=== PATIENT | male | born 1975 | race African-American/Black ===

== ENCOUNTER 2017-09-03 11:36 | Emergency (ER) | payer SELFPAY ==
[2017-09-03] MEDS ORDERED: Lidocaine 1% PF 5 ML VIAL ONE (12:17)
[2017-09-03] MEDS ORDERED: Azithromycin 250 MG TAB ONE (12:17)
[2017-09-03] MEDS ORDERED: cefTRIAXone\\ROCEPHIN 250 MG VIAL ONE (12:17)
[2017-09-03 12:48] LABS: Bilirubin Small (Negative); Blood, Urine Negative (Negative); Clarity CLOUDY (Clear); Glucose, Urine (Dipstick) Negative (Negative); Leukocyte Moderate (Negative); Nitrite Negative (Negative); Protein, Urine (Dipstick) 30 mg/dL (Neg-Trace); Specific Gravity, Urine 1.031 (1.002-1.036); pH, Urine 5.5 (5.0-9.0)
[2017-09-03 12:51] LABS: Bacteria/HPF None Seen HPF (None Seen); Hyaline Casts/LPF 0-3 HYALINE CAST LPF (0-3 Hyaline); Squamous Epithelial None Seen HPF (0-3)
[2017-09-03 13:12] LABS: RBC/HPF None Seen HPF (0-3)
[2017-09-06 02:05] LABS: Chlamydia by PCR Not Detected (NotDetected); GC by PCR DETECTED (NotDetected)
== END 2017-09-03 12:58 | disposition home or self-care (01) ==
LOC: ERS 11:36
DX: Z20.2 Contact with and (suspected) exposure to infections with a predominantly sexual mode of transmission (principal); F17.210 Nicotine dependence, cigarettes, uncomplicated
CPT/HCPCS: 81003; 81015; 87491; 87591; 96372; J0696; J2001

== ENCOUNTER 2018-07-18 21:03 | Inpatient (IN) | payer SELFPAY ==
[~2018-07-18 21:03] MED LIST: ISOVUE-370 76%-LOCM 1 ML ONE
[2018-07-18 23:34] LABS: #Basophils 0.1 thou/uL (0.0-0.2); #Eosinphils 0.2 thou/uL (0.0-0.7); #Lymphocytes 1.5 thou/uL (1.20-3.40); #Monocytes 0.8 thou/uL (0.11-0.59); #Neutrophils 5.6 thou/uL (1.40-6.50); %Basophils 0.7 % (0.0-1.0); %Eosinophils 2.3 % (0.0-10.0); %Lymphocytes 18.5 % (21.0-51.0); %Monocytes 9.5 % (0.0-10.0); Hemoglobin 14.7 g/dL (14.0-18.0); Mean Corpuscular HGB CONC 30.9 g/dL (32.0-36.0); Mean Corpuscular Hemoglobin 24.1 pg (27.0-31.0); Mean Corpuscular Volume 77.9 fL (78.0-98.0); Mean Platelet Volume 9.2 fL (7.4-10.4); Platelet Count 301 thou/uL (130-400); RBC Distribution Width 13.8 % (11.5-14.5); Red Blood Cell (RBC) Count 6.12 mill/uL (4.70-6.10); White Blood Cell (WBC) Count 8.1 thou/uL (4.8-10.8)
[2018-07-18] MEDS ORDERED: Ampicillin/Sulbactam 3 GM in Sodium Chloride 0.9% 100 ML IVPB SCH (23:45)
--- NOTE | 2018-07-18 23:51 | CT ---
CT of the neck with contrast: 07/18/2018 COMPARISON: None HISTORY: Mouth infection, evaluate for abscess TECHNIQUE: Axial CT imaging at 2.5 mm intervals from the skull base through the lung apices with IV c ontrast. Coronal and sagittal reformatted imaging obtained. FINDINGS: The imaged paranasal sinuses and mastoid air cells are grossly unremarkable. The imaged lung apices are unremarkable. The retroantral fat and the parapharyngeal fat appears clear bilaterally. The parotid glands and subm andibular glands are unremarkable. The tonsillar pillars, epiglottis and preepiglottic fat, hyoid bone, thyroid cartilage, cricoid cartilage, thyroid gland, and level of the glottis appear unremarkab le. There is an expansile lytic lesion associated with the left maxilla at the level of the second premol ar with cortical disruption both medially and laterally. This lesion measures 2.4 cm in greatest dimension and likely represents a large periapical abscess involving multiple teeth. There are vera us dental caries and missing teeth bilaterally. In addition, there is an expansile hypodense lesion associated with the mandible on the right measuring at least 2.4 cm, associated with the first and se cond premolars. This also likely represents a prominent periapical abscess. Direct visualization is advised. Neoplastic lesions cannot be fully excluded in the proper clinical scenario. There are enlar ged level 1 lymph nodes bilaterally. Mildly enlarged bilateral level 2A and level 2B lymph nodes are noted, likely reactive in nature. There is soft tissues swelling and inflammatory fat stranding involving the gingival surface of the o uter table of the mandible on the right in the outer table of the maxilla on the left. IMPRESSION: Expansile lytic lesions associated with the left maxilla and the right mandible with maycol cent fat stranding suggesting prominent periapical abscesses. Associated lymph node enlargement is likely reactive in nature. In the proper clinical setting, malignancy cannot be excluded but is felt much less likely. Dental consultation is advised.
[2018-07-18 23:55] LABS: ALT (SGPT) 14 U/L (8-55); AST (SGOT) 15 U/L (5-34); Albumin 4.3 g/dL (3.5-5.0); Alkaline Phosphatase 107 U/L (40-150); Anion Gap 16 mmol/L (10-20); BUN (Urea Nitrogen) 6 mg/dL (8.9-20.6); Calc. Creatinine Clearance 0 mL/min (70-130); Calcium 9.2 mg/dL (7.8-10.44); Carbon Dioxide 23 mmol/L (22-29); Chloride 100 mmol/L (98-107); Estimated GFR-MDRD Greater than 90; Globulin 3.9 g/dL (2.4-3.5); Glucose 82 mg/dL (70-105); Potassium 3.8 mmol/L (3.5-5.1); Protein, Total 8.2 g/dL (6.0-8.3); Sodium 135 mmol/L (136-145)
[2018-07-19] MEDS ORDERED: Adacel (T-DAP) 0.5 ML SYRINGE ONE (00:03)
[2018-07-19] MEDS ORDERED: Ketorolac Tromethamine 30 MG/ML VIAL ONE (00:03)
[2018-07-19 00:14] LABS: HIV (1/2) Antibody/Antigen Non-Reactive (NonReactive); HIV 1/2 INDEX 0.14 S/CO (<1.00)
[2018-07-19] MEDS: Sodium Chloride 0.9% 1,000 ML IV SCH ×5 (02:07→22:22)
[2018-07-19 02:24] VITALS: BMI 25.9
[2018-07-19] MEDS ORDERED: Morphine 2 MG/ML SYRINGE SLOW IVP PRN (02:29)
[2018-07-19] MEDS ORDERED: Ondansetron PF 4 MG/2 ML Vial IVP PRN (02:30)
[2018-07-19] MEDS ORDERED: Ondansetron ODT 4 MG TAB SL PRN (02:30)
[2018-07-19] MEDS: Ampicillin/Sulbactam 3 GM in Sodium Chloride 0.9% 100 ML IVPB SCH ×4 (09:05→20:18)
[2018-07-19] MEDS ORDERED: Acetaminophen 325 MG TAB PO PRN (13:15)
--- NOTE | 2018-07-19 18:50 | CON ---
DATE OF CONSULTATION: 07/19/2018 HISTORY OF PRESENT ILLNESS: This is a 42-year-old male, who reports mouth and throat pain beginning on with worsening symptoms over the weekend, ultimately leading to swelling of the lips and significant pain with difficulty opening the mouth and difficulty with p.o. intake resulting in the patient's report to the emergency room. CT of the neck was taken with concern for dental abscess , for which Oral Surgery was consulted. PAST MEDICAL HISTORY: None. MEDICATIONS: None. ALLERGIES: NKDA. SOCIAL HISTORY: Denies alcohol or recreational drug use. One pack per day smoking history. PHYSICAL EXAMINATION: VITAL SIGNS: Blood pressure 143/76, pulse 110, temperature 99.2, and oxygen saturation 99% on room air at the time of initial evaluation. GENERAL: The patient is lying in bed, watching TV, in no acute distress. Awake , alert, and oriented. HEENT: Pupils are equally round and reactive to light. Extraocular movements intact. Nose within normal limits. Ears within normal limits. There is edema of the upper and lower lips with crusting along the vermilion border. Ulcerations and vesicles present on the mucosal surface of the lower lip extending into vestibule. There was difficulty obtaining a detailed intraoral exam due to the patient's discomfort and inability to open the mouth wide due to pain, but poor overall oral hygiene is present. There is no purulence appreciated. There is also no intraoral edema outside of the lips. No tooth pain on palpation or evidence of acute odontogenic abscess associated with the maxillary and mandibular findings on the CT scan. Tongue is full range of motion. No lesions are present on the dorsal aspect. The floor of the mouth and ventral surface of the tongue could not be directly visualized, but the patient reports that he feels that there is ulcerations in this area. REVIEW OF SYMPTOMS: The patient reports significant lip and mucosal pain intraorally, throat discomfort, difficulty swallowing due to pain, otherwise review of symptoms within normal limits. LABORATORY DATA: White blood cell count 8.1, hemoglobin 14.7, hematocrit 47.7, and platelets 301. Chemistry; sodium 135, potassium 3.8, chloride 100, carbon dioxide 23, BUN 6, creatinine 1, and glucose 82. C-reactive protein 6.5. CT of the neck reveals a 2.5 x 2 cm radiolucent lesion at the apex of teeth #12 through #14. It is a well circumscribed lesion with associated bony expansion. The maxillary sinus is clear superior to this area. There is a dental decay and periodontal disease present throughout the dentition. There is also a 2.5 x 1.5 cm radiolucent well circumscribed lesion also with bony expansion at the apex of teeth #28, #29, and #30. ASSESSMENT AND PLAN: This is a 42-year-old male with what appears to be an acute viral infection. There is no clinical signs that are consistent with an acute bacterial odontogenic infection. The lesions that are present on the CT scan associated with the teeth appear more like benign pathology than acute abscess. Clinically at this time the CT findings appear to just be an incidental finding unrelated to the patient's chief complaint of lip pain, swelling and ulcerations. Recommend supportive therapy for apparent viral infection. The patient is currently having difficulty with p.o. intake, so IV fluids are recommended until sufficiently able to stay hydrated on his own. Viscous lidocaine can be used as needed for relief of intraoral pain associated with ulcerations, anti-inflammatories for pain managements as well. No indications for surgical intervention at this time. Will reassess tomorrow. Job ID: [id number] [facility]
[2018-07-20] MEDS ORDERED: diphenhydrAMINE 25 MG CAP PO PRN
[2018-07-20] MEDS ORDERED: Ibuprofen 100 MG/5 ML UDCUP PO SCH (00:15)
[2018-07-20] MEDS: Aluminum & Magnesium Hydroxide 60 ML, Lidocaine 2% Viscous Solution 30 ML, diphenhydrAM... SSW PRN ×3 (01:14→17:14)
[2018-07-20] MEDS: Ampicillin/Sulbactam 3 GM in Sodium Chloride 0.9% 100 ML IVPB SCH ×4 (03:11→20:28)
[2018-07-20 06:31] LABS: #Basophils 0.1 thou/uL (0.0-0.2); #Eosinphils 0.2 thou/uL (0.0-0.7); #Lymphocytes 2.7 thou/uL (1.20-3.40); #Monocytes 0.8 thou/uL (0.11-0.59); #Neutrophils 4.6 thou/uL (1.40-6.50); %Basophils 0.8 % (0.0-1.0); %Eosinophils 2.1 % (0.0-10.0); %Lymphocytes 32.4 % (21.0-51.0); %Monocytes 9.4 % (0.0-10.0); %Neutrophils 55.3 % (42.0-75.0); Hemoglobin 11.3 g/dL (14.0-18.0); Mean Corpuscular HGB CONC 31.6 g/dL (32.0-36.0); Mean Corpuscular Hemoglobin 24.4 pg (27.0-31.0); Mean Corpuscular Volume 77.2 fL (78.0-98.0); Mean Platelet Volume 8.8 fL (7.4-10.4); Platelet Count 295 thou/uL (130-400); RBC Distribution Width 13.4 % (11.5-14.5); Red Blood Cell (RBC) Count 4.65 mill/uL (4.70-6.10); White Blood Cell (WBC) Count 8.2 thou/uL (4.8-10.8)
[2018-07-20 06:51] LABS: Anion Gap 12 mmol/L (10-20); BUN (Urea Nitrogen) 8 mg/dL (8.9-20.6); Calc. Creatinine Clearance 129 mL/min (70-130); Calcium 8.3 mg/dL (7.8-10.44); Carbon Dioxide 24 mmol/L (22-29); Chloride 106 mmol/L (98-107); Estimated GFR-MDRD Greater than 90; Glucose 74 mg/dL (70-105); Potassium 3.4 mmol/L (3.5-5.1); Sodium 139 mmol/L (136-145)
[2018-07-20] MEDS: Enoxaparin Sodium 40 MG/0.4 ML SYRINGE SC SCH (08:53)
[2018-07-20] MEDS: Sodium Chloride 0.9% 1,000 ML IV SCH ×2 (08:55→17:17)
--- NOTE | 2018-07-20 09:50 | HP ---
CHIEF COMPLAINT: Lip swollen, has some crusting oral lesion. HISTORY OF PRESENT ILLNESS: He is a 42-year-old man with no medical history. He came into the ER because of having some swelling of lip and some problem with the teeth. Could not open or could swallow anything. When he come to the ER, his vital signs; pulse 110, blood pressure 143/76, respirations 14, and temperature 99.2. In the ER, he was found to have a thrush in the mouth with some swelling around the mouth and the pain was 6/[address] scan done of the soft tissue showed dental abscess. PAST MEDICAL HISTORY: None. PAST SURGERY HISTORY: He has a history of orthopedic surgery left wrist. PSYCHIATRIC HISTORY: No previous history. SOCIAL HISTORY: Denies alcohol use. The patient is a drug use. Does smoke tobacco 1 pack a day. Lives at home alone. FAMILY HISTORY: Reviewed, noncontributory and not pertinent to current illness. MEDICATIONS: None. ALLERGIES: NONE. REVIEW OF SYSTEMS: CONSTITUTIONAL: He does have some chills, some fever. HEENT: Eye examination, he denies any eye pain or any eye discharge. ENT does have dysphagia, otalgia, throat pain, worsening oral thrush. CARDIOVASCULAR: Negative for chest pain, PND, orthopnea, or palpitation. RESPIRATORY: No cough. No short of breath. No wheezing. GI: No nausea. No vomiting. No diarrhea. No abdominal pain. No hematemesis. No melena. GENITOURINARY: Male. No dysuria. MUSCULOSKELETAL: No any joint pain. SKIN: Negative for skin rash. NEUROLOGIC: No any headache. No blurry vision. No focal deficits. HEME/LYMPHATIC: Normal lymphatic system. Hematological system, no clotting and no bruising. PHYSICAL EXAMINATION: I examined the patient. HEENT: His head is atraumatic and normocephalic. Pupils are round and reactive. Extraocular muscles are intact. Ears, nose, and throat normal. Tongue mucosa moist. Pharynx injected bilaterally from mucous membrane. Thrush present. Extensive crusting and cracking lesions on posterior pharynx and lips. normal. No erythema. No swelling. NECK: Supple. No JVD. Trachea midline. Cervical adenopathy diffuse, multiple nodes tender and swollen, submental nodes swollen, tender, and palpable. RESPIRATION: Chest is normal with no added sounds. CVS: S1, S2 audible. No S3 or S4. ABDOMEN: Soft. Bowel sounds audible. No organomegaly. EXTREMITIES: No pedal edema. No cyanosis. No clubbing. NEUROLOGIC: Alert and oriented x3. No focal deficits. SKIN: No rash. Normal skin turgor. LABORATORY DATA: The lab shows WBC 8.1, hematocrit 47.7, hemoglobin 14.7, and platelets 201, and neutrophils 18.5. Chemistry; sodium 135, potassium 3.8, chloride 100, bicarb 23, BUN 6, creatinine 1.0, lactic acid 2, AST 15, ALT 14, C-Reactive protein 6.5, globulin 3.9, and albumin 1.1. negative. Soft tissue neck CAT scan showed expansile lytic with left maxilla numerous dental caries, missing teeth, periapical abscess. Neoplastic cannot be excluded. Lymph nodes, enlarged bilaterally, level 2A to 2B. Softer swelling in gingiva. IMPRESSION: Expansile lytic lesions over the left maxilla and right mandible with adjacent fat stranding suggestive of prominent periapical abscess, associated lymph node enlargement reactive in nature, malignancy cannot be excluded, but it is much less likely. Dental consultation is advised. ASSESSMENT AND PLAN: 1. Extensive oral lesions, dental abscess versus lytic lesion. 2. Sepsis, assess the protocol. IV Unasyn 2.5 g q.6 hourly. Oral maxillary surgeon consulted. IV normal saline and pain management. DVT prophylaxis Lovenox. Job ID: [id number]
--- NOTE | 2018-07-20 16:25 | PRG ---
DATE OF SERVICE: 07/20/2018 SUBJECTIVE: The patient feels like he may be getting slightly bit better. Still has some pain. The mouth rinse seems to be helping, presumably talked about the viscous lidocaine. OBJECTIVE: VITAL SIGNS: Temperature 99.2, pulse 73, respirations 18, O2 saturation 98% on room air, and BP is 124/72. GENERAL APPEARANCE: Age-appropriate male, in no distress. He is awake, alert, oriented, pleasant, and appears to be somewhat uncomfortable. HEENT: Reveals persistent edema, erythema, scabbing and scaling over the lips with some small ulcerated areas. He also has some whitish plaquing over the hard palate. LABORATORY DATA: Blood cultures are negative. White count 8.2 and hemoglobin 11.3. Chemistries, potassium is 3.4. IMPRESSION AND PLAN: Viral infection of the oral mucosa in the lips. He was evaluated earlier by Dr. Bacon, who does not believe that there is a bacterial infectious process going on and this is likely self-limited viral issue. Main concern is keeping the patient adequately hydrated, treating him symptomatically and see if we can get to the point where he can take p.o. adequately. Continue with viscous lidocaine and intravenous fluids. We will continue antibiotics for now just to prevent secondary infection. However, once he appears to have clear healing, we can likely discontinue that or switch it to p.o. Job ID: [id number]
[2018-07-21] MEDS: Ampicillin/Sulbactam 3 GM in Sodium Chloride 0.9% 100 ML IVPB SCH ×4 (03:25→20:35)
--- NOTE | 2018-07-21 04:47 | PRG ---
DATE OF SERVICE: 07/20/2018 SUBJECTIVE: The patient was lying in bed comfortably, in no acute distress. Reports that he feels a little bit better today. He has been tolerating liquids and able to eat apple sauce without issue. OBJECTIVE: VITAL SIGNS: Stable. He is afebrile as of this morning with a temperature at 98.5 degrees Fahrenheit at 8 a.m. HEENT: Exam reveals continued edema of the lips with ulcerations remaining on mucosal surface of the lips as well as extending into the vestibule. His mouth opening is improved today allowing a better intraoral exam. Again, this exam reveals there is no active purulence or tenderness to palpation associated with the teeth in the upper left maxilla and lower right mandible that are associated with lesions seen on CT scan that would be consistent with an acute abscess. ASSESSMENT AND PLAN: Likely acute herpetic stomatitis involving the lips and intraoral mucosa. Recommend supportive therapy as needed. There is no urgent need at this time for surgical intervention of the maxillary and mandibular lesions. These will require extraction of the associated teeth and biopsy of the lesions, but this will be delayed and treated as an outpatient in the clinic setting after resolution of the lip edema and ulcerations for the patient's comfort and short-term recovery. The patient is to follow up in the [facility] in 10 to 14 days. Call [phone] for appointment or with questions, concerns, or worsening symptoms. Job ID: [id number]
[2018-07-21] MEDS: Sodium Chloride 0.9% 1,000 ML IV SCH ×2 (07:03→15:22)
[2018-07-21] MEDS: Enoxaparin Sodium 40 MG/0.4 ML SYRINGE SC SCH (07:52)
[2018-07-21] MEDS: HYDROcodone/Acetaminophen 5/325 mg Tablet PO PRN ×3 (07:53→20:41)
[2018-07-21] MEDS ORDERED: Diabetic Tussin 200 MG/10 ML UDCUP PO PRN (09:52)
[2018-07-21] MEDS ORDERED: Artificial Tears 18 DROP/0.9 ML EA EYE PRN (09:52)
[2018-07-21] MEDS ORDERED: Zolpidem Tartrate 5 MG TAB PO PRN (09:52)
[2018-07-21] MEDS ORDERED: Ondansetron ODT 4 MG TAB PO PRN (09:52)
[2018-07-21] MEDS ORDERED: Cepastat Lozenges 1 LOZ PO PRN (09:52)
[2018-07-21] MEDS ORDERED: Calcium Carbonate 500 MG ChewTAB PO PRN (09:52)
[2018-07-21] MEDS ORDERED: Ondansetron PF 4 MG/2 ML Vial IVP PRN (09:52)
[2018-07-21] MEDS ORDERED: Sodium Chloride 0.65% Nasal 44 ML BOT EA NARE PRN (09:52)
[2018-07-21] MEDS ORDERED: Eucerin (Mineral Oil/Petrolatum,White) 30 gm Jar TOP PRN (09:52)
[2018-07-21] MEDS ORDERED: hydrALAZINE 20 MG/ML VIAL SLOW IVP PRN (09:52)
[2018-07-21] MEDS ORDERED: Senokot S 8.6-50 MG TAB PO PRN (09:52)
[2018-07-21] MEDS ORDERED: Loperamide HCl 2 MG CAP PO PRN (09:52)
--- NOTE | 2018-07-21 10:10 | PDOC.PN ---
- Subjective Encounter Start Date: 07/21/18 Encounter Start Time: 07:50 -: old records requested/rev Patient seen and examined. No new complaints. No overnight events - Objective Resuscitation Status - Order Detail: 07/19/18 13:15 Resuscitation Status Routine Resuscitation Status: FULL: Full Resuscitation MAR Reviewed: Yes Vital Signs & Weight: Vital Signs (12 hours) Temp Pulse Resp BP BP Pulse Ox 07/21/18 07:42 99.3 F 75 14 105/67 98 07/21/18 04:21 99.5 F 74 16 120/67 95 07/21/18 00:32 100.1 F H 83 16 118/75 97 Weight Weight 186 lb I&O: 07/20/18 07/21/18 07/22/18 06:59 06:59 06:59 Intake Total 2205 1637 Output Total 1025 2100 Balance 1180 -463 Result Diagrams: 07/20/18 05:56 07/20/18 05:56 Phys Exam - Physical Examination Constitutional: NAD HEENT: PERRLA, sclera anicteric oral lesion noted lip swelling Neck: no JVD, supple Respiratory: no wheezing, no rales, no rhonchi Cardiovascular: RRR, no significant murmur, no rub Gastrointestinal: soft, non-tender, no distention, positive bowel sounds Musculoskeletal: no edema, pulses present Neurological: non-focal, normal sensation, moves all 4 limbs Lymphatic: no nodes Psychiatric: normal affect, A&O x 3 Skin: no rash, normal turgor Dx/Plan (1) Dental abscess Code(s): K04.7 - PERIAPICAL ABSCESS WITHOUT SINUS Status: Acute (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 Review of Systems - Review of Systems ENT: Mouth Pain. negative: Ear Pain, Ear Discharge, Nose Pain, Nose Discharge, Nose Congestion, Mouth Swelling, Throat Pain, Throat Swelling, Other Respiratory: negative: Cough, Dry, Shortness of Breath, Hemoptysis, SOB with Excertion, Pleuritic Pain, Sputum, Wheezing Cardiovascular: negative: chest pain, palpitations, orthopnea, paroxysmal nocturnal dyspnea, edema, light headedness, other Gastrointestinal: negative: Nausea, Vomiting, Abdominal Pain, Diarrhea, Constipation, Melena, Hematochezia, Other Genitourinary: negative: Dysuria, Frequency, Incontinence, Hematuria, Retention , Other Musculoskeletal: negative: Neck Pain, Shoulder Pain, Arm Pain, Back Pain, Hand Pain, Leg Pain, Foot Pain, Other - Medications/Allergies Allergies/Adverse Reactions: Allergies Allergy/AdvReac Type Severity Reaction Status Date / Time No Known Drug Allergies Allergy Verified 07/19/18 02:37 Medications: Current Medications Acetaminophen (Tylenol) 650 mg PO Q4H PRN PRN Reason: Headache/Fever/Mild Pain (1-3) Last Admin: 07/20/18 20:38 Dose: 650 mg Hydrocodone Bitart/Acetaminophen ([place] 5/325) 1 tab PO Q4H PRN PRN Reason: Moderate Pain (4-6) Last Admin: 07/21/18 07:53 Dose: 1 tab Artificial Tears (Tears Naturale) 2 drop EA EYE PRN PRN PRN Reason: Dry Eyes Calcium Carbonate (Tums) 1,000 mg PO Q4H PRN PRN Reason: Heartburn or Indigestion Al Hydroxide/Mg Hydroxide 60 ml/ Lidocaine HCl 30 ml/Diphenhydramine HCl 75 mg 0 ml SSW PRN PRN PRN Reason: Mouth Irritation Last Admin: 07/20/18 17:14 Dose: 10 ml Diphenhydramine HCl (Benadryl) 25 mg PO Q4H PRN PRN Reason: Itching Enoxaparin Sodium (Lovenox) 40 mg SC 0900 [facility] Last Admin: 07/21/18 07:52 Dose: 40 mg Guaifenesin (Robitussin Sf) 200 mg PO Q4H PRN PRN Reason: Cough Hydralazine HCl (Apresoline) 10 mg SLOW IVP Q4H PRN PRN Reason: SBP > 180 and HR < 70 Sodium Chloride (Normal Saline 0.9%) 1,000 mls @ 100 mls/hr IV .Q10H [facility] Last Admin: 07/21/18 07:03 Dose: 1,000 mls Ampicillin Sodium/Sulbactam (Sodium 3 gm/ Sodium Chloride) 100 mls @ 200 mls/ hr IVPB 0300,0900,1500,2100 [facility] Last Admin: 07/21/18 09:46 Dose: 100 mls Loperamide HCl (Imodium) 2 mg PO PRN PRN PRN Reason: Diarrhea/Loose Stools Mineral Oil/White Petrolatum (Eucerin Cream) 0 gm TOP BIDPRN PRN PRN Reason: Dry Skin Ondansetron HCl (Zofran Odt) 4 mg PO Q6H PRN PRN Reason: Nausea/Vomiting Ondansetron HCl (Zofran) 4 mg IVP Q6H PRN PRN Reason: Nausea/Vomiting Senna/Docusate Sodium (Senokot S) 2 tab PO BID PRN PRN Reason: Constipation Sodium Chloride (Flush - Normal Saline) 10 ml IVF PRN PRN PRN Reason: Saline Flush Sodium Chloride ([place] Nasal [place] 0.65%) 0 ml EA NARE QIDPRN PRN PRN Reason: Nasal Congestion Throat Lozenges (Cepastat Lozenges) 1 cinthya PO Q2H PRN PRN Reason: Sore Throat Zolpidem Tartrate (Ambien) 5 mg PO HSPRN PRN PRN Reason: Insomnia
[2018-07-21] MEDS: Aluminum & Magnesium Hydroxide 60 ML, Lidocaine 2% Viscous Solution 30 ML, diphenhydrAM... SSW PRN ×2 (13:21→21:19)
[2018-07-22] MEDS: Ampicillin/Sulbactam 3 GM in Sodium Chloride 0.9% 100 ML IVPB SCH ×2 (03:17→09:41)
[2018-07-22] MEDS: Enoxaparin Sodium 40 MG/0.4 ML SYRINGE SC SCH (09:41)
[2018-07-22] MEDS: Aluminum & Magnesium Hydroxide 60 ML, Lidocaine 2% Viscous Solution 30 ML, diphenhydrAM... SSW PRN (09:41)
--- NOTE | 2018-07-22 10:17 | PDOC.PN ---
- Subjective Encounter Start Date: 07/22/18 Encounter Start Time: 08:00 Patient seen and examined. No new complaints. No overnight events - Objective Resuscitation Status - Order Detail: 07/19/18 13:15 Resuscitation Status Routine Resuscitation Status: FULL: Full Resuscitation MAR Reviewed: Yes Vital Signs & Weight: Vital Signs (12 hours) Temp Pulse Resp BP Pulse Ox 07/22/18 07:35 99.0 F 64 16 122/74 98 07/22/18 04:00 98.9 F 78 20 119/70 93 L 07/22/18 00:27 98.7 F 66 20 125/74 96 Weight Weight 186 lb I&O: 07/21/18 07/22/18 07/23/18 06:59 06:59 06:59 Intake Total 1637 1950 Output Total 2100 425 Balance -463 1525 Result Diagrams: 07/20/18 05:56 07/20/18 05:56 Phys Exam - Physical Examination Constitutional: NAD HEENT: PERRLA, moist MMs, sclera anicteric Neck: no JVD, supple Respiratory: no wheezing, no rales, no rhonchi Cardiovascular: RRR, no significant murmur, no rub Gastrointestinal: soft, non-tender, no distention, positive bowel sounds Musculoskeletal: no edema, pulses present Neurological: non-focal, normal sensation Psychiatric: normal affect, A&O x 3 Skin: no rash, normal turgor Dx/Plan (1) Dental abscess Code(s): K04.7 - PERIAPICAL ABSCESS WITHOUT SINUS Status: Acute (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 Review of Systems - Review of Systems ENT: negative: Ear Pain, Ear Discharge, Nose Pain, Nose Discharge, Nose Congestion, Mouth Pain, Mouth Swelling, Throat Pain, Throat Swelling, Other Respiratory: negative: Cough, Dry, Shortness of Breath, Hemoptysis, SOB with Excertion, Pleuritic Pain, Sputum, Wheezing Cardiovascular: negative: chest pain, palpitations, orthopnea, paroxysmal nocturnal dyspnea, edema, light headedness, other Gastrointestinal: negative: Nausea, Vomiting, Abdominal Pain, Diarrhea, Constipation, Melena, Hematochezia, Other Genitourinary: negative: Dysuria, Frequency, Incontinence, Hematuria, Retention , Other Musculoskeletal: negative: Neck Pain, Shoulder Pain, Arm Pain, Back Pain, Hand Pain, Leg Pain, Foot Pain, Other Skin: negative: Rash, Lesions, Joel, Bruising, Other - Medications/Allergies Allergies/Adverse Reactions: Allergies Allergy/AdvReac Type Severity Reaction Status Date / Time No Known Drug Allergies Allergy Verified 07/19/18 02:37 Medications: Current Medications Acetaminophen (Tylenol) 650 mg PO Q4H PRN PRN Reason: Headache/Fever/Mild Pain (1-3) Last Admin: 07/20/18 20:38 Dose: 650 mg Hydrocodone Bitart/Acetaminophen ([place] 5/325) 1 tab PO Q4H PRN PRN Reason: Moderate Pain (4-6) Last Admin: 07/21/18 20:41 Dose: 1 tab Artificial Tears (Tears Naturale) 2 drop EA EYE PRN PRN PRN Reason: Dry Eyes Calcium Carbonate (Tums) 1,000 mg PO Q4H PRN PRN Reason: Heartburn or Indigestion Al Hydroxide/Mg Hydroxide 60 ml/ Lidocaine HCl 30 ml/Diphenhydramine HCl 75 mg 0 ml SSW PRN PRN PRN Reason: Mouth Irritation Last Admin: 07/22/18 09:41 Dose: 10 ml Diphenhydramine HCl (Benadryl) 25 mg PO Q4H PRN PRN Reason: Itching Enoxaparin Sodium (Lovenox) 40 mg SC 0900 [facility] Last Admin: 07/22/18 09:41 Dose: 40 mg Guaifenesin (Robitussin Sf) 200 mg PO Q4H PRN PRN Reason: Cough Hydralazine HCl (Apresoline) 10 mg SLOW IVP Q4H PRN PRN Reason: SBP > 180 and HR < 70 Ampicillin Sodium/Sulbactam (Sodium 3 gm/ Sodium Chloride) 100 mls @ 200 mls/ hr IVPB 0300,0900,1500,2100 [facility] Last Admin: 07/22/18 09:41 Dose: 100 mls Loperamide HCl (Imodium) 2 mg PO PRN PRN PRN Reason: Diarrhea/Loose Stools Mineral Oil/White Petrolatum (Eucerin Cream) 0 gm TOP BIDPRN PRN PRN Reason: Dry Skin Ondansetron HCl (Zofran Odt) 4 mg PO Q6H PRN PRN Reason: Nausea/Vomiting Ondansetron HCl (Zofran) 4 mg IVP Q6H PRN PRN Reason: Nausea/Vomiting Senna/Docusate Sodium (Senokot S) 2 tab PO BID PRN PRN Reason: Constipation Sodium Chloride (Flush - Normal Saline) 10 ml IVF PRN PRN PRN Reason: Saline Flush Sodium Chloride ([place] Nasal [place] 0.65%) 0 ml EA NARE QIDPRN PRN PRN Reason: Nasal Congestion Throat Lozenges (Cepastat Lozenges) 1 cinthya PO Q2H PRN PRN Reason: Sore Throat Zolpidem Tartrate (Ambien) 5 mg PO HSPRN PRN PRN Reason: Insomnia
--- NOTE | 2018-07-22 10:20 | DIS ---
DATE OF ADMISSION: 07/19/2018 DATE OF DISCHARGE: 07/22/2018 PRIMARY CARE PHYSICIAN: [facility] Call admission. DISCHARGE DISPOSITION: Home. PRIMARY DISCHARGE DIAGNOSES: 1. Dental abscess. 2. Herpes stomatitis. 3. Microcytic anemia. SECONDARY DISCHARGE DIAGNOSIS: None. PRIMARY PROCEDURE/OPERATION: None. RADIOLOGICAL INVESTIGATION: Soft tissue CT neck. SIGNIFICANT LABORATORY DATA: Hemoglobin 11.3, creatinine 0.91. HIV negative. Blood culture negative. DISCHARGE MEDICATION: Augmentin 875 mg twice daily for 7 days. CONTRAINDICATION: None. CODE STATUS: Full code. INPATIENT HEALTH INFORMATION SPECIALIST: Dr. Bacon, oral surgeon was consulted while in hospital. TEST RESULT PENDING ON DISCHARGE: None. ALLERGIES: NO KNOWN DRUG ALLERGY. DISCHARGE PLAN: Posthospital, the patient is instructed to follow up with Dr. Dano Bacon in 1 week. HOSPITAL COURSE: A 42-year-old male, who was admitted by Dr. Rudy Pinzon. Please see his H and P for further details. The patient was admitted for oral ulceration and lip swelling, which was related with herpes infection. The patient also had CT soft tissue of neck, which showed dental abscess. Oral surgeon was consulted and they evaluated this patient and they recommended that this patient does not need any acute intervention from dental abscess perspective, but he was requiring conservative treatment for herpes stomatitis, which was treated while in hospital with Benadryl, Maalox, and lidocaine viscous with significant improvement. Initially, he was only tolerating liquid and subsequently he was tolerating solid food. His stomatitis has significant clinical improvement and now the patient will follow up with dental surgeon or oral surgeon after discharge. While in hospital, he was dehydrated and that is why we gave him IV fluid. While in the hospital, prophylactically we gave him antibiotic with ampicillin and sulbactam and on discharge, we changed to Augmentin. The patient is hemodynamically stable, tolerating p.o. well, ambulatory. The patient is seen and examined at bedside today. Please see my progress note from today for further detail. Job ID: [id number]
[2018-07-22 11:07] VITALS: BP 128/85; TEMP 98.9
== END 2018-07-22 12:45 | disposition home or self-care (01) | DRG 158 ==
LOC: ERS 21:03 → SURG A 07-19 02:14 → OBSVTOIN 07-19 02:14
PROVIDERS: ADMIT Internal Medicine; ATTEND Internal Medicine
DX: K04.7 Periapical abscess without sinus (principal); B00.2 Herpesviral gingivostomatitis and pharyngotonsillitis; D64.9 Anemia, unspecified; E86.0 Dehydration
CPT/HCPCS: 36415; 70491; 80048; 80053; 83605; 85025; 85652; 86140; 87040; 87389; 90471; 90715; 90732; 96361; 96365; 96375; G0009; J0295; J1650; J1885; J2270; J3490; Q0163; Q9966

== ENCOUNTER 2020-01-02 23:28 | Emergency (ER) | payer SELFPAY ==
[2020-01-03] MEDS ORDERED: Lidocaine 1% w/Epinephrine 1:100K 20 ML VIAL ONE (00:17)
[2020-01-03] MEDS ORDERED: Boostrix 0.5 ML VIAL ONE (01:11)
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
== END 2020-01-03 01:17 | disposition home or self-care (01) ==
LOC: ERS 23:28
DX: S06.9X9A Unspecified intracranial injury with loss of consciousness of unspecified duration, initial encounter (principal); S01.311A Laceration without foreign body of right ear, initial encounter; S81.011A Laceration without foreign body, right knee, initial encounter; F17.210 Nicotine dependence, cigarettes, uncomplicated; Z23 Encounter for immunization; Y04.8XXA Assault by other bodily force, initial encounter
CPT/HCPCS: 12011; 70450; 90471; 90715

== ENCOUNTER 2024-03-12 18:38 | Inpatient (IN) | payer SELFPAY ==
[~2024-03-12 18:38] MED LIST changes: -ISOVUE-370 76%-LOCM 1 ML ONE; +Iopamidol-370 76% 500 ML MDV (1 ML CHARGE) ONE
[2024-03-12] MEDS ORDERED: Cefepime 2 GM VIAL ONE (19:07)
[2024-03-12] MEDS ORDERED: Sodium Chloride 0.9% 100 ML ONE ×2 (19:07→22:15)
[2024-03-12 19:20] LABS: Actual Bicarbonate (HCO3v) 26.4 mEq/L (22-28); Base Excess 2.5 mEq/L (-2.0 to +3.0); Calcium, Ionized (venous) 1.06 mmol/L (1.16-1.32); Chloride (VBG) 102 mmol/L (98-106); Hematocrit-VBG 41 % (42.0-52.0); Hemoglobin (Hb) 13.9 g/dL (13.1-17.2); Potassium (VBG) 2.95 mmol/L (3.70-5.30); Sodium 142 mmol/L (133-146); pH (venous) 7.452 (7.32-7.43)
[2024-03-12] MEDS ORDERED: Acetaminophen 650 MG Suppository ONE (19:22)
[2024-03-12 19:25] LABS: #Basophils Less than 0.03 10x3/uL (0.0-0.2); #Eosinophils Less than 0.03 10x3/uL (0.0-0.7); %Basophils 0.1 % (0.0-1.0); %Lymphocytes 6.2 % (21.0-51.0); %Monocytes 4.4 % (0.0-10.0); %Neutrophils 88.8 % (42.0-75.0); Hematocrit 40.4 % (42.0-52.0); Hemoglobin 12.9 g/dL (14.0-18.0); Mean Corpuscular HGB CONC 31.9 g/dL (32.0-36.0); Mean Corpuscular Hemoglobin 23.7 pg (27.0-31.0); Mean Corpuscular Volume 74.3 fL (78.0-98.0); Mean Platelet Volume 10.6 fL (7.4-10.4); Platelet Count 227 10x3/uL (130-400); RBC Distribution Width 15.4 % (11.5-14.5); Red Blood Cell (RBC) Count 5.44 mill/uL (4.70-6.10)
[2024-03-12 19:29] LABS: Bacteria/HPF None Seen HPF (None Seen); Bilirubin Negative (Negative); Blood, Urine 2+ (Negative); CAUTI Indications for Culture Alt mental st,lethar; Clarity Turbid (Clear); Glucose, Urine (Dipstick) Normal (Negative); Ketone, Urine Negative (Negative); Leukocyte Negative Leu/uL (Negative); Nitrite Negative (Negative); Protein, Urine (Dipstick) 70 mg/dL (Neg-Trace); RBC/HPF 0-3 HPF (0-3); Specific Gravity, Urine 1.022 (1.002-1.036); Squamous Epithelial 0-3 HPF (0-3); WBC/HPF 0-3 HPF (0-3); pH, Urine 5.5 (5.0-9.0)
[2024-03-12 19:30] LABS: Urine Culture Reflex No No
[2024-03-12 19:31] LABS: Amphetamine Not Detected (NotDetected); Barbiturates Screen Not Detected (NotDetected); Benzodiazepine Screen Not Detected (NotDetected); Cocaine Metabolite Screen Not Detected (NotDetected); Methadone Not Detected (NotDetected); Methamphetamine Not Detected (NotDetected); Opiate Screen Not Detected (NotDetected); Oxycodone Screen Not Detected (NotDetected); Phencyclidine (PCP) Detected (NotDetected); THC/Cannabinoid Screen Not Detected (NotDetected); Tricyclic Screen Not Detected (NotDetected)
[2024-03-12 19:45] LABS: Microcytosis SLIGHT = 6-15 cells HPF (0-5); Platelet Adequacy Comment Platelets Normal
[2024-03-12 19:47] LABS: Lipase 6 U/L (8-78)
[2024-03-12 19:48] LABS: ALT (SGPT) 24 U/L (8-55); AST (SGOT) 46 U/L (5-34); Albumin 3.6 g/dL (3.5-5.0); Alkaline Phosphatase 95 U/L (40-110); Anion Gap 16 mmol/L (10-20); BUN (Urea Nitrogen) 21 mg/dL (8.9-20.6); Calc. Creatinine Clearance 0 mL/min (70-130); Calcium 8.6 mg/dL (7.8-10.44); Carbon Dioxide 22 mmol/L (22-29); Chloride 105 mmol/L (98-107); Estimated GFR 45; Globulin 4.1 g/dL (2.4-3.5); Glucose 115 mg/dL (70-105); Potassium 2.7 mmol/L (3.5-5.1); Protein, Total 7.7 g/dL (6.0-8.3); Sodium 140 mmol/L (136-145)
[2024-03-12 19:49] LABS: Acetaminophen Less than 10 mcg/mL (Less than 10); Alcohol Less than 10.0 mg/dL (Less than 10); Salicylate Less than 8.0 mg/dL (Less than 8.0)
[2024-03-12 19:51] LABS: Troponin I 0.011 ng/mL (< 0.028)
[2024-03-12] MEDS ORDERED: Ondansetron PF 4 MG/2 ML Vial IVP PRN (20:58)
[2024-03-12 21:03] LABS: Magnesium 1.6 mg/dL (1.6-2.6)
[2024-03-12] MEDS ORDERED: Potassium Chloride 20 MEQ TAB ONE (21:40)
[2024-03-12] MEDS ORDERED: Ketorolac Tromethamine 30 MG (1 mL) VIAL ONE (21:40)
[2024-03-12] MEDS ORDERED: Oseltamivir 75 MG CAP ONE (21:40)
[2024-03-12] MEDS ORDERED: Potassium Chloride 20 MEQ (100 mL) BAG ONE (21:41)
[2024-03-12] MEDS: Vancomycin (BATCH) 2.5 GM in Premix 1 BAG IVPB SCH (21:55)
[2024-03-12] MEDS: Ketorolac Tromethamine 30 MG (1 mL) VIAL IVP SCH (21:56)
[2024-03-12] MEDS: Potassium Chloride 20 MEQ TAB PO SCH (21:56)
[2024-03-12] MEDS: Oseltamivir 75 MG CAP PO SCH (21:56)
[2024-03-12] MEDS: Potassium Chloride 20 MEQ in Premix 1 BAG IVPB SCH (21:57)
[2024-03-12] MEDS: Sodium Chloride 0.9% 1,000 ML IV SCH (21:57)
[2024-03-12] MEDS ORDERED: Doxycycline 100 MG VIAL ONE (22:14)
[2024-03-12] MEDS ORDERED: Acetaminophen 325 MG TAB ONE (22:19)
[2024-03-12] MEDS: Acetaminophen 325 MG TAB PO PRN (22:24)
[2024-03-12] MEDS: Doxycycline 100 MG in Sodium Chloride 0.9% 100 ML IVPB SCH (22:25)
[2024-03-13] MEDS ORDERED: Ipratropium/Albuterol 3 ML NEB IPPB SCH (01:00)
[2024-03-13 02:27] VITALS: BMI 27.9
[2024-03-13 04:37] LABS: #Basophils Less than 0.03 10x3/uL (0.0-0.2); #Eosinophils Less than 0.03 10x3/uL (0.0-0.7); %Basophils 0.2 % (0.0-1.0); %Lymphocytes 17.8 % (21.0-51.0); %Monocytes 2.2 % (0.0-10.0); %Neutrophils 79.5 % (42.0-75.0); Hematocrit 42.3 % (42.0-52.0); Hemoglobin 13.1 g/dL (14.0-18.0); Mean Corpuscular Hemoglobin 23.6 pg (27.0-31.0); Mean Corpuscular Volume 76.1 fL (78.0-98.0); Platelet Count 203 10x3/uL (130-400); RBC Distribution Width 15.8 % (11.5-14.5); Red Blood Cell (RBC) Count 5.56 mill/uL (4.70-6.10)
[2024-03-13 05:02] LABS: Iron 16 ug/dL (65-175); Iron Binding Capacity, Total 256 mcg/dL (261-462)
[2024-03-13 05:06] LABS: ALT (SGPT) 23 U/L (8-55); AST (SGOT) 54 U/L (5-34); Albumin 3.4 g/dL (3.5-5.0); Alkaline Phosphatase 91 U/L (40-110); Bilirubin, Direct 0.4 mg/dL (0.1-0.3); Bilirubin, Total 0.9 mg/dL (0.2-1.2); Iron 13 ug/dL (65-175); Iron Binding Capacity, Total 253 mcg/dL (261-462); Protein, Total 7.1 g/dL (6.0-8.3)
[2024-03-13 05:14] LABS: Anion Gap 15 mmol/L (10-20); BUN (Urea Nitrogen) 19 mg/dL (8.9-20.6); Calc. Creatinine Clearance 68 mL/min (70-130); Carbon Dioxide 23 mmol/L (22-29); Chloride 107 mmol/L (98-107); Estimated GFR 48; Glucose 92 mg/dL (70-105); Magnesium 1.7 mg/dL (1.6-2.6); Potassium 3.2 mmol/L (3.5-5.1); Sodium 142 mmol/L (136-145)
[2024-03-13] MEDS: Potassium Chloride 20 MEQ TAB PO SCH (06:51)
[2024-03-13] MEDS: Oseltamivir 75 MG CAP PO SCH (06:54)
[2024-03-13] MEDS ORDERED: Doxycycline 100 MG in Sodium Chloride 0.9% 100 ML IVPB SCH (09:00)
[2024-03-13] MEDS: cefTRIAXone\\ROCEPHIN 1 GM in Sodium Chloride 0.9% 100 ML IVPB SCH (10:01)
[2024-03-13] MEDS: Ferrous Sulfate 325 MG TAB PO SCH (10:03)
[2024-03-13] MEDS: Enoxaparin 40 MG (0.4 mL) SYRINGE SC SCH (10:03)
[2024-03-13] MEDS: Acetaminophen 500 MG TAB PO PRN (18:20)
[2024-03-13] MEDS: FLU (Fluarix Triv) TS24-25(6MOS UP)/PF 45 MCG/0.5 ML Syringe IM ONE (18:21)
[2024-03-13 19:52] LABS: Legionella Urinary Ag Negative (Negative); Strep pneumo Urine Ag NEGATIVE (NEGATIVE)
[2024-03-14 04:30] LABS: ALT (SGPT) 27 U/L (8-55); AST (SGOT) 68 U/L (5-34); Albumin 2.9 g/dL (3.5-5.0); Alkaline Phosphatase 78 U/L (40-110); Anion Gap 14 mmol/L (10-20); BUN (Urea Nitrogen) 10 mg/dL (8.9-20.6); Bilirubin, Total 0.5 mg/dL (0.2-1.2); Calc. Creatinine Clearance 115 mL/min (70-130); Calcium 7.3 mg/dL (7.8-10.44); Carbon Dioxide 20 mmol/L (22-29); Chloride 106 mmol/L (98-107); Estimated GFR 91; Globulin 3.1 g/dL (2.4-3.5); Glucose 98 mg/dL (70-105); Magnesium 1.6 mg/dL (1.6-2.6); Potassium 3.1 mmol/L (3.5-5.1); Sodium 137 mmol/L (136-145)
[2024-03-14 04:38] LABS: #Basophils Less than 0.03 10x3/uL (0.0-0.2); #Eosinophils Less than 0.03 10x3/uL (0.0-0.7); %Basophils 0.2 % (0.0-1.0); %Lymphocytes 20.9 % (21.0-51.0); %Monocytes 2.7 % (0.0-10.0); Hematocrit 41.2 % (42.0-52.0); Mean Corpuscular HGB CONC 31.6 g/dL (32.0-36.0); Mean Corpuscular Hemoglobin 23.3 pg (27.0-31.0); Mean Corpuscular Volume 73.7 fL (78.0-98.0); Mean Platelet Volume 12.1 fL (7.4-10.4); Platelet Count 199 10x3/uL (130-400); RBC Distribution Width 15.9 % (11.5-14.5); Red Blood Cell (RBC) Count 5.59 mill/uL (4.70-6.10)
[2024-03-14] MEDS ORDERED: Electrolyte Replacement Protocol 1 EACH FS SCH (09:15)
[2024-03-14] MEDS ORDERED: Electrolyte Replacement Protocol FS PRN (09:15)
[2024-03-14] MEDS: Potassium Chloride 20 MEQ TAB PO SCH ×2 (10:30→20:51)
[2024-03-14] MEDS: Magnesium 2 GM/50 ML(in water) 2 GM in Premix 1 BAG IVPB SCH (10:31)
[2024-03-14 16:10] LABS: Potassium 3.5 mmol/L (3.5-5.1)
[2024-03-15 04:36] LABS: #Basophils Less than 0.03 10x3/uL (0.0-0.2); #Eosinophils Less than 0.03 10x3/uL (0.0-0.7); %Basophils 0.3 % (0.0-1.0); %Lymphocytes 28.3 % (21.0-51.0); %Monocytes 6.4 % (0.0-10.0); %Neutrophils 64.2 % (42.0-75.0); Hematocrit 39.7 % (42.0-52.0); Hemoglobin 12.7 g/dL (14.0-18.0); Mean Corpuscular Hemoglobin 23.6 pg (27.0-31.0); Mean Corpuscular Volume 73.7 fL (78.0-98.0); Platelet Count 194 10x3/uL (130-400); RBC Distribution Width 15.6 % (11.5-14.5); Red Blood Cell (RBC) Count 5.39 mill/uL (4.70-6.10)
[2024-03-15 05:12] LABS: ALT (SGPT) 47 U/L (8-55); AST (SGOT) 119 U/L (5-34); Albumin 2.7 g/dL (3.5-5.0); Alkaline Phosphatase 77 U/L (40-110); Anion Gap 14 mmol/L (10-20); BUN (Urea Nitrogen) 10 mg/dL (8.9-20.6); Bilirubin, Total 0.6 mg/dL (0.2-1.2); Calc. Creatinine Clearance 116 mL/min (70-130); Calcium 7.4 mg/dL (7.8-10.44); Carbon Dioxide 19 mmol/L (22-29); Chloride 103 mmol/L (98-107); Estimated GFR 92; Globulin 3.4 g/dL (2.4-3.5); Glucose 95 mg/dL (70-105); Magnesium 1.9 mg/dL (1.6-2.6); Potassium 3.3 mmol/L (3.5-5.1); Protein, Total 6.1 g/dL (6.0-8.3); Sodium 133 mmol/L (136-145)
[2024-03-15] MEDS: Magnesium 2 GM/50 ML(in water) 2 GM in Premix 1 BAG IVPB SCH (09:49)
[2024-03-15] MEDS: Potassium Chloride 20 MEQ TAB PO SCH ×2 (09:50→12:19)
[2024-03-15] MEDS: Ipratropium/Albuterol 3 ML NEB EZPAP PRN (10:26)
[2024-03-15 18:39] LABS: Actual Bicarbonate (HCO3v) 23.8 mEq/L (22-28); Base Excess -2.1 mEq/L (-2.0 to +3.0); Calcium, Ionized (venous) 1.03 mmol/L (1.16-1.32); Chloride (VBG) 103 mmol/L (98-106); Hematocrit-VBG 46 % (42.0-52.0); Hemoglobin (Hb) 15.5 g/dL (13.1-17.2); Potassium (VBG) 4.56 mmol/L (3.70-5.30); Sodium 139 mmol/L (133-146); pH (venous) 7.342 (7.32-7.43)
[2024-03-15] MEDS: Ketorolac Tromethamine 30 MG (1 mL) VIAL IVP SCH (19:35)
[2024-03-15 19:39] LABS: Actual Bicarbonate (HCO3a) 22.2 mEq/L (22-28); Analyzer IN Cardio ER; Base Excess (BEa) -0.4 mEq/L (-2.0 to +3.0); CO2 Tension 30.9 mmHg (35.0-45.0); Calcium, Ionized (arterial) 1.06 mmol/L (1.12-1.30); Carboxyhemoglobin (COHb) 0.7 gm% (0.0-3.0); Hematocrit-ABG 41 % (42.0-52.0); Hemoglobin (Hb) 13.8 g/dL (14.0-18.0); pH, Arterial 7.475 (7.35-7.45)
[2024-03-15 19:44] LABS: O2 Tension (PaO2), arterial 41.5 mmHg (80.0-100.0); Puncture Site Left Radial artery
[2024-03-15 19:45] LABS: ALV-art Gradient 190.815 mmHg (0-20)
[2024-03-15] MEDS: Ketorolac Tromethamine 30 MG (1 mL) VIAL ONE (20:03)
[2024-03-15 20:37] LABS: #Basophils Less than 0.03 10x3/uL (0.0-0.2); #Eosinophils Less than 0.03 10x3/uL (0.0-0.7); %Basophils 0.2 % (0.0-1.0); %Lymphocytes 13.8 % (21.0-51.0); %Monocytes 4.9 % (0.0-10.0); %Neutrophils 80.7 % (42.0-75.0); Hematocrit 38.7 % (42.0-52.0); Hemoglobin 12.6 g/dL (14.0-18.0); Mean Corpuscular HGB CONC 32.6 g/dL (32.0-36.0); Mean Corpuscular Hemoglobin 23.5 pg (27.0-31.0); Mean Corpuscular Volume 72.1 fL (78.0-98.0); Mean Platelet Volume 10.8 fL (7.4-10.4); Platelet Count 195 10x3/uL (130-400); RBC Distribution Width 15.8 % (11.5-14.5); Red Blood Cell (RBC) Count 5.37 mill/uL (4.70-6.10)
[2024-03-15 20:47] LABS: Lactic Acid 1.41 mmol/L (0.5-2.2)
[2024-03-15 20:52] LABS: ALT (SGPT) 53 U/L (8-55); AST (SGOT) 121 U/L (5-34); Albumin 2.7 g/dL (3.5-5.0); Alkaline Phosphatase 99 U/L (40-110); Anion Gap 12 mmol/L (10-20); BUN (Urea Nitrogen) 8 mg/dL (8.9-20.6); Bilirubin, Total 0.6 mg/dL (0.2-1.2); Calc. Creatinine Clearance 120 mL/min (70-130); Calcium 7.7 mg/dL (7.8-10.44); Carbon Dioxide 19 mmol/L (22-29); Chloride 108 mmol/L (98-107); Estimated GFR 95; Globulin 3.7 g/dL (2.4-3.5); Glucose 116 mg/dL (70-105); Potassium 3.9 mmol/L (3.5-5.1); Protein, Total 6.4 g/dL (6.0-8.3); Sodium 135 mmol/L (136-145)
[2024-03-15] MEDS: Piperacillin/Tazobactam 3.375 GM in Sodium Chloride 0.9% 100 ML IVPB SCH (20:57)
[2024-03-15] MEDS: Sodium Chloride 0.9% 500 ML IV SCH (21:00)
[2024-03-15] MEDS: methylPREDNISolone Sod Succ 40 MG VIAL IVP SCH (21:40)
[2024-03-15] MEDS: Ipratropium/Albuterol 3 ML NEB EZPAP SCH (23:32)
[2024-03-16] MEDS: Piperacillin/Tazobactam 3.375 GM in Sodium Chloride 0.9% 100 ML IVPB SCH (02:02)
[2024-03-16] MEDS: Guaifenesin DM 100-10/5 ML UDCUP PO PRN (06:40)
[2024-03-16 07:06] LABS: #Basophils Less than 0.03 10x3/uL (0.0-0.2); #Eosinophils Less than 0.03 10x3/uL (0.0-0.7); %Basophils 0.3 % (0.0-1.0); %Lymphocytes 17.3 % (21.0-51.0); %Monocytes 7.7 % (0.0-10.0); %Neutrophils 74.1 % (42.0-75.0); Hematocrit 44.8 % (42.0-52.0); Mean Corpuscular HGB CONC 31.3 g/dL (32.0-36.0); Mean Corpuscular Hemoglobin 23.3 pg (27.0-31.0); Mean Corpuscular Volume 74.7 fL (78.0-98.0); Mean Platelet Volume 11.2 fL (7.4-10.4); Platelet Count 205 10x3/uL (130-400); RBC Distribution Width 16.4 % (11.5-14.5)
[2024-03-16 07:09] LABS: ALT (SGPT) 53 U/L (8-55); AST (SGOT) 108 U/L (5-34); Albumin 2.8 g/dL (3.5-5.0); Alkaline Phosphatase 109 U/L (40-110); Anion Gap 19 mmol/L (10-20); BUN (Urea Nitrogen) 10 mg/dL (8.9-20.6); Bilirubin, Total 0.5 mg/dL (0.2-1.2); Calc. Creatinine Clearance 129 mL/min (70-130); Calcium 8.2 mg/dL (7.8-10.44); Carbon Dioxide 19 mmol/L (22-29); Chloride 108 mmol/L (98-107); Estimated GFR 98; Globulin 4.3 g/dL (2.4-3.5); Glucose 123 mg/dL (70-105); Potassium 4.3 mmol/L (3.5-5.1); Protein, Total 7.1 g/dL (6.0-8.3); Sodium 142 mmol/L (136-145)
[2024-03-16] MEDS: Benzonatate 100 MG CAP PO PRN (10:35)
[2024-03-17 05:26] LABS: Hematocrit 36.9 % (42.0-52.0); Hemoglobin 12.1 g/dL (14.0-18.0); Mean Corpuscular HGB CONC 32.8 g/dL (32.0-36.0); Mean Corpuscular Hemoglobin 23.5 pg (27.0-31.0); Mean Corpuscular Volume 71.7 fL (78.0-98.0); Mean Platelet Volume 11.3 fL (7.4-10.4); Platelet Count 227 10x3/uL (130-400); RBC Distribution Width 15.8 % (11.5-14.5); Red Blood Cell (RBC) Count 5.15 mill/uL (4.70-6.10)
[2024-03-17 05:33] LABS: Anion Gap 13 mmol/L (10-20); BUN (Urea Nitrogen) 11 mg/dL (8.9-20.6); Calc. Creatinine Clearance 120 mL/min (70-130); Calcium 8.1 mg/dL (7.8-10.44); Carbon Dioxide 21 mmol/L (22-29); Chloride 109 mmol/L (98-107); Estimated GFR 90; Glucose 141 mg/dL (70-105); Potassium 4.1 mmol/L (3.5-5.1); Sodium 139 mmol/L (136-145)
[2024-03-17 05:54] LABS: Band 23 % (5-11); Elliptocytes SLIGHT = 2-5 cells HPF (0-1); Lymphocytes 8 % (21-51); Macrocytosis SLIGHT = 6-15 cells HPF (0-5); Monocytes 4 % (0-10); Neutrophil 62 % (42-75); Platelet Adequacy Comment Platelets Normal; Poikilocytosis SLIGHT = 6-15 cells HPF (0-5); Polychromasia SLIGHT = 2-3 cells HPF (0-2); Reactive Lymphocytes 3 % (0-10); Target Cells SLIGHT = 2-5 cells HPF (0-1)
[2024-03-18 05:14] LABS: Hematocrit 35.2 % (42.0-52.0); Hemoglobin 11.5 g/dL (14.0-18.0); Mean Corpuscular HGB CONC 32.7 g/dL (32.0-36.0); Mean Corpuscular Hemoglobin 23.4 pg (27.0-31.0); Mean Corpuscular Volume 71.5 fL (78.0-98.0); Platelet Count 229 10x3/uL (130-400); RBC Distribution Width 15.9 % (11.5-14.5); Red Blood Cell (RBC) Count 4.92 mill/uL (4.70-6.10)
[2024-03-18 05:32] LABS: Anion Gap 14 mmol/L (10-20); BUN (Urea Nitrogen) 17 mg/dL (8.9-20.6); Calc. Creatinine Clearance 123 mL/min (70-130); Calcium 7.9 mg/dL (7.8-10.44); Carbon Dioxide 23 mmol/L (22-29); Chloride 106 mmol/L (98-107); Estimated GFR 93; Glucose 115 mg/dL (70-105); Potassium 4.7 mmol/L (3.5-5.1); Sodium 138 mmol/L (136-145)
[2024-03-18 05:51] LABS: Anisocytosis SLIGHT = 6-15 cells HPF (0-5); Band 16 % (5-11); Elliptocytes SLIGHT = 2-5 cells HPF (0-1); Hypochromia SLIGHT = 6-15 cells HPF (0-5); Large Platelets 1.9 % (0-5); Lymphocytes 9 % (21-51); Microcytosis SLIGHT = 6-15 cells HPF (0-5); Monocytes 10 % (0-10); Neutrophil 64 % (42-75); Platelet Adequacy Comment Platelets Normal; Reactive Lymphocytes 2 % (0-10); Target Cells SLIGHT = 2-5 cells HPF (0-1)
[2024-03-18 21:57] VITALS: BMI 29.2
[2024-03-19 04:17] LABS: Hematocrit 36.4 % (42.0-52.0); Mean Corpuscular Hemoglobin 23.1 pg (27.0-31.0); Mean Corpuscular Volume 70.1 fL (78.0-98.0); Mean Platelet Volume 10.8 fL (7.4-10.4); Platelet Count 345 10x3/uL (130-400); RBC Distribution Width 15.5 % (11.5-14.5); Red Blood Cell (RBC) Count 5.19 mill/uL (4.70-6.10)
[2024-03-19 04:43] LABS: Anion Gap 13 mmol/L (10-20); BUN (Urea Nitrogen) 19 mg/dL (8.9-20.6); Calc. Creatinine Clearance 148 mL/min (70-130); Calcium 8.2 mg/dL (7.8-10.44); Carbon Dioxide 22 mmol/L (22-29); Chloride 106 mmol/L (98-107); Estimated GFR 109; Glucose 125 mg/dL (70-105); Potassium 4.1 mmol/L (3.5-5.1); Sodium 137 mmol/L (136-145)
[2024-03-19 04:56] LABS: Anisocytosis SLIGHT = 6-15 cells HPF (0-5); Band 6 % (5-11); Elliptocytes SLIGHT = 2-5 cells HPF (0-1); Hypochromia SLIGHT = 6-15 cells HPF (0-5); Large Platelets 11.1 % (0-5); Lymphocytes 7 % (21-51); Metamyelocyte 1 % (0-0); Microcytosis SLIGHT = 6-15 cells HPF (0-5); Monocytes 12 % (0-10); Myelocyte 1 % (0-0); Neutrophil 72 % (42-75); Platelet Adequacy Comment Platelets Normal; Polychromasia SLIGHT = 2-3 cells HPF (0-2); Reactive Lymphocytes 1 % (0-10)
[2024-03-19] MEDS ORDERED: methylPREDNISolone Sod Succ 40 MG VIAL IVP SCH (10:40)
[2024-03-19] MEDS ORDERED: Ipratropium/Albuterol 3 ML NEB EZPAP PRN (13:19)
[2024-03-19] MEDS: methylPREDNISolone Sod Succ 40 MG VIAL IVP SCH ×2 (13:20→21:32)
[2024-03-20 04:58] LABS: #Basophils Less than 0.03 10x3/uL (0.0-0.2); #Eosinophils Less than 0.03 10x3/uL (0.0-0.7); %Basophils 0.2 % (0.0-1.0); %Lymphocytes 15.4 % (21.0-51.0); %Neutrophils 69.8 % (42.0-75.0); Hematocrit 36.5 % (42.0-52.0); Hemoglobin 11.7 g/dL (14.0-18.0); Mean Corpuscular HGB CONC 32.1 g/dL (32.0-36.0); Mean Corpuscular Hemoglobin 23.1 pg (27.0-31.0); Mean Platelet Volume 10.6 fL (7.4-10.4); Platelet Count 437 10x3/uL (130-400); RBC Distribution Width 15.9 % (11.5-14.5); Red Blood Cell (RBC) Count 5.07 mill/uL (4.70-6.10)
[2024-03-20 06:32] LABS: Anion Gap 14 mmol/L (10-20); BUN (Urea Nitrogen) 17 mg/dL (8.9-20.6); Calc. Creatinine Clearance 161 mL/min (70-130); Calcium 8.3 mg/dL (7.8-10.44); Carbon Dioxide 21 mmol/L (22-29); Chloride 107 mmol/L (98-107); Estimated GFR 112; Glucose 142 mg/dL (70-105); Potassium 3.5 mmol/L (3.5-5.1); Sodium 138 mmol/L (136-145)
[2024-03-20] MEDS: Potassium Chloride 20 MEQ TAB PO SCH (08:49)
[2024-03-21 06:36] LABS: #Basophils 0.03 10x3/uL (0.0-0.2); %Basophils 0.4 % (0.0-1.0); %Eosinophils 0.5 % (0.0-10.0); %Lymphocytes 27.2 % (21.0-51.0); %Monocytes 13.2 % (0.0-10.0); %Neutrophils 54.8 % (42.0-75.0); Hemoglobin 12.6 g/dL (14.0-18.0); Mean Corpuscular HGB CONC 32.3 g/dL (32.0-36.0); Mean Corpuscular Volume 71.3 fL (78.0-98.0); Mean Platelet Volume 10.2 fL (7.4-10.4); Platelet Count 446 10x3/uL (130-400); RBC Distribution Width 16.5 % (11.5-14.5); Red Blood Cell (RBC) Count 5.47 mill/uL (4.70-6.10)
[2024-03-21 06:56] LABS: Anion Gap 13 mmol/L (10-20); BUN (Urea Nitrogen) 16 mg/dL (8.9-20.6); Calc. Creatinine Clearance 149 mL/min (70-130); Calcium 8.2 mg/dL (7.8-10.44); Carbon Dioxide 22 mmol/L (22-29); Chloride 107 mmol/L (98-107); Estimated GFR 109; Glucose 87 mg/dL (70-105); Potassium 3.2 mmol/L (3.5-5.1); Sodium 139 mmol/L (136-145)
[2024-03-21] MEDS: predniSONE 20 MG TAB PO SCH (08:48)
[2024-03-21] MEDS: Potassium Chloride 20 MEQ TAB PO SCH (08:48)
[2024-03-21 12:17] VITALS: BP 132/72; TEMP 99
== END 2024-03-21 16:45 | disposition home or self-care (01) | DRG 871 ==
LOC: ERS 18:38 → ERHOLD 20:58 → PCU 03-13 02:10 → IMCU/EMU 03-15 20:16 → T4-A 03-20 15:20
PROVIDERS: ADMIT Internal Medicine; ATTEND Internal Medicine
DX: A41.9 Sepsis, unspecified organism (principal); J10.08 Influenza due to other identified influenza virus with other specified pneumonia; J15.9 Unspecified bacterial pneumonia; J96.01 Acute respiratory failure with hypoxia; N17.9 Acute kidney failure, unspecified; F17.210 Nicotine dependence, cigarettes, uncomplicated; E87.6 Hypokalemia; F19.10 Other psychoactive substance abuse, uncomplicated; D72.819 Decreased white blood cell count, unspecified; Z60.2 Problems related to living alone; Z79.899 Other long term (current) drug therapy
CPT/HCPCS: 36415; 36416; 36600; 51701; 71045; 74177; 80048; 80053; 80076; 80306; 80307; 81001; 82728; 82805; 83540; 83550; 83605; 83690; 83735; 83880; 84145; 84484; 85025; 87040; 87070; 87086; 87205; 87428; 87449; 87633; 87798; 87899; 93005; 94640; 96365; 96366; J0692; J0696; J1650; J1885; J2543; J2919; J3370; J3475; J3480; J7030; J7512; J7620; Q9967